=== PATIENT | male | born 1960 | race Caucasian/White ===

== ENCOUNTER → 2017-10-07 | Outpatient (CLI) | payer OTHER ==
[~2017-10-07] VITALS: Ht 177.8 cm; Wt 96.2 kg
[~2017-10-07] MED LIST: ADULT LOW DOSE81 MG PO; ATENOLOL 100MG100 M2 PO; B-12500 MCG PO; CARDURA4 MG PO; FISH OIL 1,001000 M2 PO; FLOMAX0.4 MG PO; HYDROCHLOROTHIA25 M2 GT; MAGOX 400400 MG PO; MILK THISTLE175 M3 PO; MOBIC7.5 MG PO; OMEPRAZOLE 20 M20 MG PO; POTASSIUM PO; TIZANIDINE HCL4 MG PO; TRAMADOL 50 MG50 MG PO; VITAMIN D1000 UNI1 PO; XANAX 0.25 MG0.25 MG PO; XANAX 0.5 MG0.5 MG PO
--- NOTE | ~2017-10-07 | HPC ---
[facility] [address] [place] [address] PAIN MANAGEMENT CONSULTATION Name: CORINE NUNES Room #: REG [facility] Bon.#: [id number] Admission: 10/07/17 Attend Phys: Juwan Goodman DO Discharge: Date of : 56 Report #: [id number] THIS REPORT FOR: //name// CC: Eugenio Goodman HISTORY OF PRESENT ILLNESS: The patient is a very pleasant 57-year-old gentleman who was seen now 4 years ago in September 2013 for lumbar radiculopathy, had 2 lumbar epidural injections. He was somewhat lost to follow up. He returns to the pain clinic today, referred by Dr. Proctor for assistance with management of pain, right low back, buttock, lateral thigh down to the lower leg lateral aspect. He describes a sharp sensation in the right buttock and hip, burning dysesthesia in the L4 distribution on the right leg. He has some recent pain radiating to the right groin and testicle, the aforementioned back and right leg pain has been present for about 6 months without antecedent trauma and overuse. The patient has a complex back history, had a decompressive laminectomy by Dr. Norbert Peña in 2009 and L4-L5 and L5-S1 microdiskectomy. Symptoms improved somewhat, but recurred, he had 2 epidural injections by myself in September 2013 with nominal efficacy, proceeded to have L4-L5 diskectomy revision in 2013. Did reasonably well from a back standpoint, did have cervical radicular symptoms prompting an anterior cervical disk fusion at C6-C7 on 09/2015. The patient recently had a right partial knee arthroplasty (5 weeks ago), currently has been doing physical therapy for this. Notes the current pain is exacerbated with bending, standing and twisting; gets some relief when he is recumbent. He describes pain that is a dull, burning sensation, steady, shooting and sharp, anywhere from 5 to "10+" on a VAS. REVIEW OF SYSTEMS: Complete review of systems was attached to chart and gone over with the patient. He is . He does not smoke or drink alcohol to excess. History of hypertension, treated with atenolol; gastroesophageal reflux for he which he takes omeprazole; Xanax 0.25 at bedtime for some insomnia and Flomax for benign prostatic hypertrophy. 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 With this, he spends hours standing on a cement floor climbing ladders and walking 5-7 miles during an 8-hour shift. He has been off work for the past 6 weeks due to the aforementioned partial knee arthroplasty. He has been doing PT througout the past 6 weeks. Pain impact score is 27/70. [address] [address] PAIN MANAGEMENT CONSULTATION Name: CORINE NUNES JOSY Room #: REG CLI [facility].#: [id number] Admission: 10/07/17 Attend Phys: Juwan Goodman DO Discharge: Date of : 56 Report #: [id number] PHYSICAL EXAMINATION: GENERAL: A 5 feet 10 inches, 212 pounds gentleman, in moderate distress. BMI is 30.4 kilograms per meter squared. Blood pressure is 133/88, pulse 72, respirations 16. GENERAL: He is alert and oriented to person, place and time, judged to be a reasonable historian. HEENT: Pupils equal and react to light and accommodation. Extraocular muscles are intact. NEUROLOGIC: Has a well-healed surgical scar low on the right anterior neck, slight decreased cervical extension. Upper extremity strength does show diminished right triceps strength. HEART: Regular and rhythmical without murmur. LUNGS: Clear to auscultation. ABDOMEN: Benign. MUSCULOSKELETAL: Rises from chair using armrest, does have a modestly antalgic gait. He does have an objective diminution of right hip flexion strength, slight decreased right lower extremity extension strength. Patellar reflex is 1/4 on the right, 2/4 on the left. Straight leg raise is positive at 30 degrees on the right. He is tender in the low back right side, no discrete trigger points are noted. DIAGNOSTIC STUDIES: There are no recent diagnostic studies available for evaluation at this time. ASSESSMENT: Symptomatic lumbar radiculopathy status post decompressive laminectomy (x 2) with a recurrent right L4 radicular pain pattern. Patient has failed conservative therapy including PT for six weeks. RECOMMENDATION: 1. We will seek authorization for right L4-L5 transforaminal epidural injection at earliest possible date. 2. I would like to see the patient back 30 days after injection for reevaluation. 3. We did discuss possible SCS for "failed back surgery". Patient is a good candidate if #1 does not afford relief. He has had 2 back surgeries, has failed conservative therapy, has adequate lower ext symmetric strength, exhibits no myelopathic symptoms and is desirous of NOT taking routine opioids for pain control. Thank you for allowing me to participate in the patient's care. We will keep you abreast of his progress. <ELECTRONICALLY SIGNED> By: Juwan Goodman DO 10/08/17 0650 1224 2325 Juwan Goodman DO /nt
[2017-10-07 10:02] VITALS: BP 133/88
== END ==
LOC: PAIN 06:59
DX: M54.16 Radiculopathy, lumbar region (principal); Z98.890 Other specified postprocedural states

== ENCOUNTER → 2017-10-08 | Outpatient (CLI) | payer OTHER ==
[~2017-10-08] VITALS: Ht 177.8 cm; Wt 98.4 kg
--- NOTE | ~2017-10-08 | HPC ---
[address] [place] [address] PAIN MANAGEMENT CONSULTATION Name: CORINE NUNES Room #: REG CL Yakov#: [id number] Admission: 10/08/17 Attend Phys: Juwan Goodman DO Discharge: Date of : 56 Report #: [id number] THIS REPORT FOR: //name// CC: Eugenio Goodman PROCEDURE: Right L4-L5 transforaminal epidural injection. INDICATION: Symptomatic lumbar radiculopathy status post decompressive laminectomy. The patient was seen yesterday in clinic 10/07/2017, we requested authorization for procedure. He returns to pain clinic today noting pain continues in the right low back, buttock, and leg. ASSESSMENT: Symptomatic lumbar radiculopathy status post decompressive laminectomy. PROCEDURE: Transforaminal lumbar epidural injection under fluoroscopy. PROCEDURE NOTE: After both written and informed consent was obtained including risk of spinal cord damage, infection, increased pain and paralysis, the patient agreed to proceed. The patient was taken to the fluoroscopy suite, placed in a prone position with appropriate abdominal bolstering. After sterile prep with ChloraPrep and sterile drape, a skin wheal with 1% Xylocaine was raised. A 22 gauge 4-1/2 inch epidural Tuohy needle was inserted. From an oblique approach into the posterior-superior aspect of the right L4-L5 neural foramen with continuous pressure on the glass syringe plunger for loss of resistance. Glass syringe was filled with 2 cc of 0.1 Xylocaine. The glass loss of resistance syringe was removed. A low volume extension tubing was connected, negative aspiration was accomplished for cerebrospinal fluid or blood. 1 mL of Omnipaque was injected which showed spread both within the epidural space and laterally along the nerve root. This was followed with 80 mg of triamcinolone plus 1 mL of 1.5% preservative-free Xylocaine. Needle was partially withdrawn, 0.5 mL of Xylocaine was injected to clear the needle and the needle was removed. The area was cleansed, band-aid was applied. The patient was allowed to ambulate to the recovery room, discharged in good and stable condition. By: 0850 1143 Juwan Goodman DO /nt
[2017-10-08 08:20] VITALS: BP 154/78
== END | disposition home or self-care (01) ==
LOC: PAIN 07:34
DX: M54.16 Radiculopathy, lumbar region (principal); G89.29 Other chronic pain; Z98.890 Other specified postprocedural states; Z79.82 Long term (current) use of aspirin; Z79.891 Long term (current) use of opiate analgesic; Z79.899 Other long term (current) drug therapy

== ENCOUNTER → 2018-10-27 | Outpatient (CLI) | payer OTHER ==
[~2018-10-27] VITALS: Ht 177.8 cm; Wt 98.0 kg
[~2018-10-27] MED LIST changes: +ASPIR 8181 M1 PO; +OMEPRAZOLE 20 M20 M1 PO; -OMEPRAZOLE 20 M20 MG PO
--- NOTE | 2018-10-27 12:44 | P ---
[facility] [place] [address] PROCEDURE REPORT Name: CORINE NUNES [facility] [id number] Admission: 10/27/18 Attend Phys: Nicolás Echols MD Discharge: Date of : 56 Report #: [id number] THIS REPORT FOR: //name// CC: Nicolás Monae MD DATE OF SERVICE: 10/27/2018 BRIEF HISTORY: The patient is a 58-year-old male with a history of colon polyps for followup colonoscopy. PREOPERATIVE DIAGNOSIS: History of colon polyps. POSTOPERATIVE DIAGNOSES: 1. Colon polyp. 2. Moderate sigmoid diverticulosis coli with few scattered proximal colon diverticula. MEDICATIONS: Deep sedation with propofol per Anesthesia. SPECIMEN: Polyp from proximal transverse colon. ESTIMATED BLOOD LOSS: 3 mL. PROCEDURE: Colonoscopy to cecum and terminal ileum with snare polypectomy. FINDINGS: Prior to propofol sedation, procedure of colonoscopy discussed with the patient as well as potential risks and its complications. He indicates he understands and desires to proceed. DESCRIPTION OF PROCEDURE: With the patient in left lateral decubitus position, digital examination was completed, which revealed no abnormalities. Subsequently, the Olympus video colonoscope was introduced in the rectum, advanced under direct vision to the cecum. Done with minimal difficulty. The cecum was identified by the ileocecal valve and the appendiceal orifice. I was able to visualize the distal segment of terminal ileum, which was inspected and noted to be unremarkable. At that point, the scope was slowly withdrawn and careful circumferential views obtained including retroflexing the scope in the ascending colon. Upon slow withdrawal of the scope, the prep was noted to be good. The mucosa was within normal limits, normal vascular pattern, normal light reflex. As we withdrew the scope, a few scattered diverticula were seen in the proximal colon, but there was no endoscopic evidence of diverticulitis. In the proximal transverse colon, a 5-6-mm sessile polyp was seen and removed by cold snare polypectomy and recovered. Scope was further withdrawn and no additional neoplastic lesions were seen. As we withdrew the scope in the left [facility] [address] [place] [address] PROCEDURE REPORT Name: CORINE NUNES [facility]#: [id number] Admission: 10/27/18 Attend Phys: Nicolás Echols MD Discharge: Date of : 56 Report #: [id number] colon, in particular the sigmoid colon, there was noted to be moderately severe diverticular disease without endoscopic evidence of diverticulitis. The scope was withdrawn in the rectum. Upon retroflexion, no abnormalities were seen. Scope was withdrawn. The patient tolerated the procedure well. CONDITION OF THE PATIENT UPON DISCHARGE: Following procedure, the patient drowsy, arousable and conversant and will be discharged home when fully ambulatory. INSTRUCTIONS TO THE PATIENT AND FAMILY AT THE TIME OF DISCHARGE: One polyp identified and removed today as noted. We will follow up on the path and make further recommendations. If this polyp is an adenoma, he is to return in 5 years; if not an adenoma, then 10 years would be indicated. The patient's last colonoscopy was more than 5 years ago. Withdrawal time from the cecum was 11 minutes 25 seconds. <ELECTRONICALLY SIGNED> By: Nicolás Echols MD 10/27/18 1244 1136 1221 Nicolás Echols MD /nt
--- NOTE | 2018-11-01 12:07 | PATH ---
[facility] [address] [place] [address] PATHOLOGY RPT PROCEDURE Name: CLIFFORD HUNT Room #: REG CL MShellyR.#: [id number] Admission: 10/27/18 Date of : 56 Discharge: Report #: [id number] Path Case #: [id number] [facility] Accession Number: [id number] . 01 Material submitted: . PROXIMAL TRANSVERSE COLON POLYP . 01 Clinical history: . Pre-OP DX: Hx polyps Post-OP DX: Colon polyp, diverticulosis . 02 Diagnosis: Polyp, proximal transverse colon polyp, endoscopic biopsy: - Tubular adenoma. - Negative for high grade dysplasia. . (IUV:mml; 10/31/2018) QLM/10/31/2018 . 02 Electronically signed: . Sayra Bass MD, Pathologist NPI- [id number] . 01 Gross description: . Received in formalin labeled "Clifford Hunt, polyp proximal transverse colon," is a single segment of larsen soft tissue measuring 0.7 cm in maximum dimension. The specimen is entirely submitted in cassette A1. (TSD; 10/27/2018) TOB/TOB . 02 Pathologist provided ICD-10: D12.3 . 02 CPT . 401450 Specimen Comment: A courtesy copy of this report has been sent to Specimen Comment: [phone], , . Specimen Comment: Report sent to ,DR ALEXIS / DR MILLER Specimen Comment: A duplicate report has been generated due to demographic updates. Performed at: [id number] [facility] [address] [id number] MD Darnell Louis MD Phone: [phone] Performed at: [address] [id number] [address] [address] PATHOLOGY RPT PROCEDURE Name: CLIFFORD HUNT Room #: REG DARRELL Nagy#: [id number] Admission: 10/27/18 Date of : 56 Discharge: Report #: [id number] Path Case #: [id number] MD Sayra Bass MD Phone: [phone]
== END | disposition home or self-care (01) ==
LOC: GI 10-13 16:33
DX: Z12.11 Encounter for screening for malignant neoplasm of colon (principal); Z86.010 Personal history of colon polyps; D12.3 Benign neoplasm of transverse colon; K57.30 Diverticulosis of large intestine without perforation or abscess without bleeding; G47.33 Obstructive sleep apnea (adult) (pediatric); I10 Essential (primary) hypertension; K21.9 Gastro-esophageal reflux disease without esophagitis; Z96.651 Presence of right artificial knee joint; Z98.890 Other specified postprocedural states; Z79.899 Other long term (current) drug therapy; Z79.82 Long term (current) use of aspirin
CPT/HCPCS: 62110; 62900

== ENCOUNTER 2019-03-09 07:29 | Day surgery (SDC) | payer OTHER ==
[2019-03-01 09:21] LABS: HEMATOCRIT 44.7 % (42.0-52.0); HEMOGLOBIN 15.6 gm/dL (14.0-18.0); MCH 32.8 pg (26.0-34.0); MCHC 34.9 g/dL (28.0-37.0); MCV 93.8 fL (80.0-100.0); RBC 4.76 mil/uL (4.50-6.00); RDW 13.3 % (10.5-14.5); WBC 4.3 thou/uL (4.0-11.0)
[2019-03-01 09:25] LABS: URINE BILIRUBIN NEGATIVE (Negative); URINE BLOOD NEGATIVE (Negative); URINE CLARITY CLEAR; URINE COLOR YELLOW; URINE GLUCOSE-RANDOM* NEGATIVE (Negative); URINE KETONES NEGATIVE (Negative); URINE LEUKOCYTES-REFLEX NEGATIVE (Negative); URINE NITRITE-REFLEX NEGATIVE (Negative); URINE PROTEIN (DIPSTICK) NEGATIVE (Negative); URINE UROBILINOGEN 0.2 E.U./dl (0.2-1.0)
[2019-03-01 09:33] LABS: PROTIME 10.4 Seconds (9.3-11.4)
[2019-03-01 09:34] LABS: ALBUMIN 3.8 g/dL (3.4-5.0); CALCIUM 9.3 mg/dL (8.5-10.1); CREATININE 0.8 mg/dL (0.7-1.3); POTASSIUM 4.2 mmol/L (3.5-5.1)
--- NOTE | 2019-03-02 16:25 | EKG ---
[address] [address] ELECTROCARDIOGRAM REPORT Name: DESCORINE Room #: PRE [facility] M.R.#: [id number] ������������������ Admission: ������������������ Attend Phys: Julio Dawkins MD Discharge: ������������������ Date of : 56 Report #: [id number] ����������������������������������������������������������������� [id number] THIS REPORT FOR: //name// [facility] Test Date: 2019-03-01 Test Time: 09:11:54 Pat Name: CORINE NUNES Department: Room: Gender: [employer] Operator: Nissa CURRIE : 1960 Requested By: Julio Dawkins Order Number: [id number] MD: Eldon Magdaleno Measurements Intervals [place] Rate: 63 P: 37 [place]: 200 QRS: -5 QRSD: 94 T: 50 QT: 403 QTc: 413 Interpretive Statements Sinus rhythm Compared to ECG 04/09/2010 18:10:23 Inferior Q waves no longer present Q waves no longer present Electronically Signed On 03-02-2019 16:25:13 CDT by Eldon Magdaleno [email or web address] ��������������������������������������������� <ELECTRONICALLY SIGNED> ���������������������������������������� By: Eldon Magdaleno MD ��������������������������������������������� 03/02/19 1625 0 0 Eldon Magdaleno MD /CITLALY
[~2019-03-09] VITALS: Ht 177.8 cm; Wt 99.8 kg
[~2019-03-09 07:29] MED LIST changes: +MS CONTIN15 MG PO; +OXYCODONE HCL10 MG PO
[2019-03-09 11:54] VITALS: BP 136/74
[2019-03-09 15:30] VITALS: BP 137/88
[2019-03-09 15:45] VITALS: BP 153/95
[2019-03-09 16:13] VITALS: BP 143/91
--- NOTE | 2019-03-09 17:43 | NUR ---
PATIENT ARRIVED POSTOP APPROXIMATLEY 1600M LEFT NAVIO UNICOMPARTMENTAL KNEE. A/OX4, PAIN MANAGED WITH MEDICATIONS, PT EVALULATED AND IS OKAY TO DISCHARGE HOME FROM PT [place]AND [place]. PT STATES HE WANTS TO GO HOME. CONTACTED [employer] DIRECTOR ORTHO DR NOE WHO OKAYED DISCHARGE. PATIENT PAIN IS UNDER CONTROL. PATIENT STATES HE HAS ANTIBIOTICS AND PAIN MEDICATION SCRIPTS FILLED AT HOME AND UNDERSTANDS HE IS TO START ANTIBIOTICS ONCE HE RETURNS HOME. PT VOICED THAT HE UNDERSTANDS HE IS TO FOLLOW PT EXERCISES, TAKES MEDS FOLLOWED, DRESSING MANAGEMENT, AND TO FOLLOW UP WITH DR ALAMO NEXT WEEK PER HIS SCHEDULED APPOINTMENT. PT DISCHARGING HOME WITH .
--- NOTE | 2019-03-15 12:30 | O ---
[facility] [place] [address] OPERATIVE REPORT Name: CORINE NUNES Room #: DEP [facility] M.R.#: [id number] Admission: 03/09/19 ������������������ Attend Phys: Julio Dawkins MD Discharge: 03/09/19 ������������������ Date of : 56 Report #: [id number] THIS REPORT FOR: //name// CC: Eugenio Dawkins DATE OF SERVICE: 03/09/2019 PREOPERATIVE DIAGNOSIS: Left knee medial compartment osteoarthritis. POSTOPERATIVE DIAGNOSIS: Left knee medial compartment osteoarthritis. PROCEDURE: Left unicompartmental medial knee arthroplasty using Navio robotic assistance. SURGEON: Julio Dawkins M.D. CAR DEALER: Linda Parker PA-C. ANESTHESIA: LMA with adductor canal block. IMPLANTS: Seay and Nephew size 4 Journey II Oxinium medial femoral component, size 4 tibia and size 8 polyethylene. TOURNIQUET TIME: 48 minutes. ESTIMATED BLOOD LOSS: 25 mL. INDICATION FOR CAR DEALER: Throughout the case, extensive retraction and manipulation of the knee was required. This was afforded to me by my content assistant. CONDITION UPON LEAVING THE OPERATING ROOM: Stable. INDICATIONS FOR PROCEDURE: The patient is a 58-year-old gentleman with medial compartment left knee osteoarthritis. He had failed conservative measures for this and after discussion with him, he elected for left medial compartment knee arthroplasty. DESCRIPTION OF PROCEDURE: Risks, benefits, alternatives and its complications were discussed in detail with the patient including but not limited to risk of anesthesia; risk of damage to nerves, arteries, blood vessels; risk for infection or bleeding; risk for continued knee pain and need for reoperation. Informed consent was obtained from the patient. Left knee was appropriately marked in the preoperative holding area. IV Ancef was given for preoperative antibiotics. [address] [address] OPERATIVE REPORT Name: CORINE NUNES JOSY Room #: DEP [facility] Bon.#: [id number] Admission: 03/09/19 ������������������ Attend Phys: Julio Dawkins MD Discharge: 03/09/19 ������������������ Date of : 56 Report #: [id number] He was brought to the operating room and placed in the supine position on the operating room table. LMA anesthesia was induced without complication. Tourniquet was placed on the left thigh. Left lower extremity was prepped and draped in normal sterile fashion. Timeout was performed, properly identifying the patient and procedure as well as the instrumentation; all in the operating room were in agreement. Left lower extremity was exsanguinated, tourniquet was inflated. Tourniquet time was 48 minutes. Standard approach to the medial knee was made with 10 blade through the skin. Dissection was taken down sharply to the fascia and deep flaps were developed medially and laterally. Fresh 10 blade was used to make a medial parapatellar arthrotomy and the knee was inspected. There was nyxdtjff-oq-ozpqxr medial compartment osteoarthritis. Lateral compartment was well maintained. Patellofemoral compartment was well maintained. ACL was intact. It was decided to proceed with medial compartment arthroplasty. Reference pins were placed in the femur and the tibia and the knee was digitally mapped using the HomeRun robotic system. We sized a size 4 femur and a size 4 tibia with a 9 spacer. After acceptance of the intraoperative plan, the femoral and tibial resections were made using the Navio bur. After this, tibia was sized and found to be a size 4. Size 4 tibial trial was placed, pinned and punched. A size 4 femoral trial was placed and this was trialed with a size 8 polyethylene. Knee was taken through range of motion and found to have a millimeter laxity medially throughout full range of motion of the knee. After this, trial components were removed. Bony ends were thoroughly irrigated with normal saline. A final size 4 tibia, size 4 Journey Oxinium femoral component were cemented in place using standard cementation techniques. While the cement cured, a pamela-articular injection consisting of morphine, ropivacaine, epinephrine and Toradol was placed around the knee joint capsule. After the cement cured, tourniquet was deflated. Hemostasis was obtained with Bovie cautery. Final size 8 polyethylene was placed. A gram of vancomycin was placed deep in the joint. Fascia was closed with 0 Vicryl, skin was closed with 2-0 Vicryl and 3-0 Monocryl. Dermabond and a ISIS dressing was applied. The patient tolerated this procedure well and went to the recovery room under the care of anesthesia postoperatively. ��������������������������������������������� <ELECTRONICALLY SIGNED> ���������������������������������������� By: Julio Dawkins MD ��������������������������������������������� 03/15/19 1230 1300 1319 Julio Dawkins MD /nt
== END 2019-03-09 19:00 | disposition home or self-care (01) ==
LOC: OR 07:29 → TBA 07:29 → OR 07:59 → 4W 16:46 → OR 19:00
PROVIDERS: Orthopaedic Surgery
DX: M17.12 Unilateral primary osteoarthritis, left knee (principal); I10 Essential (primary) hypertension; K21.9 Gastro-esophageal reflux disease without esophagitis; Z96.651 Presence of right artificial knee joint; G47.30 Sleep apnea, unspecified; Z98.890 Other specified postprocedural states; Z79.899 Other long term (current) drug therapy; Z79.82 Long term (current) use of aspirin; Z79.891 Long term (current) use of opiate analgesic
CPT/HCPCS: 10047; 50010; 50101; 50415; 50954; 51130; 51225; 53078; 53370; 54118; 56527; 56528; 57095; 57103; 57110; 57111; 57127; 57180; 62110; 62900; 64043; 70005